=== PATIENT | male | born 1985 | race Caucasian/White ===

== ENCOUNTER 2020-09-25 20:20 | Emergency (ER) | payer SELFPAY ==
--- NOTE | 2020-09-25 20:29 | ERPHSYRPT ---
- History of Present Illness Time Seen by Provider: 09/25/20 20:29 Historian: patient Exam Limitations: no limitations Physician History: This is a 34-year-old white male who has had extensive work-up of his epigastric and chest pain in the last several months. In fact, he states that he has had 3-4 EKGs recently that have all been normal. He also has had negative CAT scans and has been evaluated by his primary care physician for his epigastric discomfort. He has had no abdominal surgeries. He has an upper endoscopy scheduled for Tuesday of next week. This afternoon at approximately 5 PM, the patient began having some chest pressure that has been present intermittently since before July 2020. He also has significant anxiety issues and he thinks it is probably that but he wanted to be checked out to make sure it is not his heart issue. He has had no nausea vomiting or diarrhea. He is not short of breath. Timing/Duration: today Activities at Onset: none Quality: pressure Location: substernal, central Chest Pain Radiation: no radiation Severity of Pain-Max: mild Severity of Pain-Current: none Modifying Factors: Improves With: nothing Associated Symptoms: denies symptoms Prior Chest Pain/Cardiac Workup: recently seen/treated Nitro Today/Relief: no nitro taken today Aspirin Treatment Today: no aspirin today Allergies/Adverse Reactions: amoxicillin Allergy (Mild, Verified 09/25/20 20:33) Home Medications: Famotidine 20 mg [Pepcid 20 MG] 20 mg PO DAILY 09/25/20 [History] Travel Risk - International Travel Have you traveled outside of the country in past 3 weeks: No - Coronavirus Screening Are you exhibiting any of the following symptoms?: No Close contact with a COVID-19 positive Pt in past 14-21 Days: No - Review of Systems Constitutional: No Symptoms Eyes: No Symptoms Ears, Nose, & Throat: No Symptoms Respiratory: No Symptoms Cardiac: No Symptoms, Chest Pain (Resolved) Abdominal/Gastrointestinal: No Symptoms Genitourinary Symptoms: No Symptoms Musculoskeletal: No Symptoms Skin: No Symptoms Neurological: No Symptoms Psychological: No Symptoms Endocrine: No Symptoms Hematologic/Lymphatic: No Symptoms Immunological/Allergic: No Symptoms All Other Systems: Reviewed and Negative - Past Medical History Pertinent Past Medical History: Yes - Past Surgical History Past Surgical History: Yes - Nursing Vital Signs Nursing Vital Signs: Initial Vital Signs Temperature 98.7 F 09/25/20 20:21 Pulse Rate 97 H 09/25/20 20:21 Respiratory Rate 18 09/25/20 20:21 Blood Pressure 166/118 09/25/20 20:21 O2 Sat by Pulse Oximetry 100 09/25/20 20:21 Pain Scale Pain Intensity 4 - Physical Exam General Appearance: no apparent distress, alert, anxiety Eye Exam: PERRL/EOMI, post op pupil defect (L) Ears, Nose, Throat Exam: normal ENT inspection, moist mucous membranes Neck Exam: normal inspection, non-tender, supple, full range of motion Respiratory Exam: normal breath sounds, chest tenderness, lungs clear, airway intact, No respiratory distress Cardiovascular Exam: regular rate/rhythm, normal heart sounds, normal peripheral pulses Gastrointestinal/Abdomen Exam: soft, normal bowel sounds, No tenderness Rectal Exam: not done Back Exam: normal inspection, normal range of motion, No CVA tenderness, No vertebral tenderness Extremity Exam: normal inspection, normal range of motion, pelvis stable Neurologic Exam: alert, oriented x 3, cooperative, 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 No comparison EKG available) Ordered Tests: Active Orders 24 hr Category Date Time Status [employer] STAT Care 09/25/20 20:31 Active EKG-ER Only STAT Care 09/25/20 20:31 Active IV Insertion STAT Care 09/25/20 20:31 Active CBC W DIFF Stat Lab 09/25/20 20:30 Completed CMP Stat Lab 09/25/20 20:30 Completed D-DIMER QUANTITATIVE Stat Lab 09/25/20 20:30 Completed TROPONIN Q3H Lab 09/25/20 20:30 Completed TROPONIN Q3H Lab 09/25/20 23:45 Ordered TROPONIN Q3H Lab 09/26/20 02:45 Ordered TROPONIN Q3H Lab 09/26/20 05:45 Ordered TROPONIN Q3H Lab 09/26/20 08:45 Ordered Lab/Rad Data: Laboratory Result Diagrams 09/25/20 20:30 09/25/20 20:30 Laboratory Results 09/25/20 09/25/20 09/25/20 Range/Units 20:30 20:30 20:30 WBC (4.0-10.5) K/mm3 RBC (4.1-5.6) M/mm3 Hgb (12.5-18.0) gm/dl Hct (42-50) % MCV (78-100) fl MCH (26-32) pg MCHC (32-36) g/dl RDW (11.5-14.0) % Plt Count (150-450) K/mm3 MPV (7.5-11.0) fl Gran % (36.0-66.0) % Eos # (Auto) (0-0.5) Absolute Lymphs (auto) (1.0-4.6) Absolute Monos (auto) (0.0-1.3) Lymphocytes % (24.0-44.0) % Monocytes % (0.0-12.0) % Eosinophils % (0.00-5.0) % Basophils % (0.0-0.4) % Absolute Granulocytes (1.4-6.9) Basophils # (0-0.4) D-Dimer 253 (215-500) ng/mL Sodium 139 (137-145) mmol/L Potassium 3.4 L (3.5-5.1) mmol/L Chloride 105 (98-107) mmol/L Carbon Dioxide 24 (22-30) mmol/L Anion Gap 12.7 (5-15) MEQ/L BUN 12 (9-20) mg/dL Creatinine 0.98 (0.66-1.25) mg/dL Estimated GFR > 60.0 ML/MIN Glucose 126 H (74-106) mg/dL Calcium 9.7 (8.4-10.2) mg/dL Total Bilirubin 0.40 (0.2-1.3) mg/dL AST 21 (17-59) U/L ALT 20 (0-50) U/L Alkaline Phosphatase 55 (38-126) U/L Troponin I < 0.012 (0.000-0.034) ng/mL Serum Total Protein 8.1 (6.3-8.2) g/dL Albumin 4.5 (3.5-5.0) g/dL 09/25/20 Range/Units 20:30 WBC 9.5 (4.0-10.5) K/mm3 RBC 5.04 (4.1-5.6) M/mm3 Hgb 15.5 (12.5-18.0) gm/dl Hct 44.7 (42-50) % MCV 88.7 (78-100) fl MCH 30.8 (26-32) pg MCHC 34.7 (32-36) g/dl RDW 11.9 (11.5-14.0) % Plt Count 284 (150-450) K/mm3 MPV 10.9 (7.5-11.0) fl Gran % 49.1 (36.0-66.0) % Eos # (Auto) 0.22 (0-0.5) Absolute Lymphs (auto) 3.88 (1.0-4.6) Absolute Monos (auto) 0.71 (0.0-1.3) Lymphocytes % 40.7 (24.0-44.0) % Monocytes % 7.5 (0.0-12.0) % Eosinophils % 2.3 (0.00-5.0) % Basophils % 0.4 (0.0-0.4) % Absolute Granulocytes 4.68 (1.4-6.9) Basophils # 0.04 (0-0.4) D-Dimer (215-500) ng/mL Sodium (137-145) mmol/L Potassium (3.5-5.1) mmol/L Chloride (98-107) mmol/L Carbon Dioxide (22-30) mmol/L Anion Gap (5-15) MEQ/L BUN (9-20) mg/dL Creatinine (0.66-1.25) mg/dL Estimated GFR ML/MIN Glucose (74-106) mg/dL Calcium (8.4-10.2) mg/dL Total Bilirubin (0.2-1.3) mg/dL AST (17-59) U/L ALT (0-50) U/L Alkaline Phosphatase (38-126) U/L Troponin I (0.000-0.034) ng/mL Serum Total Protein (6.3-8.2) g/dL Albumin (3.5-5.0) g/dL - Progress Progress: improved Air Movement: good Blood Culture(s) Obtained: No Antibiotics given: No Counseled pt/family regarding: lab results, diagnosis, need for follow-up - Departure Departure Disposition: Home Clinical Impression: Non-cardiac chest pain Condition: Stable Critical Care Time: No Referrals: CHAPITO PIMENTEL [ACTIVE STAFF] - Additional Instructions: Take your medication as prescribed. Follow-up with your primary care physician for further management.
[2020-09-25 20:52] LABS: Absolute Neutrophil Ct (ANC) 4.68 (1.4-6.9); BASOPHIL % 0.4 % (0.0-0.4); Basophil (Absolute #) 0.04 (0-0.4); Eosinophil % 2.3 % (0.00-5.0); Eosinophil (Absolute #) 0.22 (0-0.5); Hematocrit 44.7 % (42-50); Hemoglobin 15.5 gm/dl (12.5-18.0); Lymphocyte (Absolute #) 3.88 (1.0-4.6); Lymphocytes % 40.7 % (24.0-44.0); Mean Cell Volume 88.7 fl (78-100); Mean Corpuscular Hemoglobin 30.8 pg (26-32); Mean Corpuscular Hgb Concent. 34.7 g/dl (32-36); Mean Platelet Volume 10.9 fl (7.5-11.0); Monocyte (Absolute #) 0.71 (0.0-1.3); Monocytes % 7.5 % (0.0-12.0); Neutrophil % 49.1 % (36.0-66.0); Platelet Count 284 K/mm3 (150-450); Red Blood Count 5.04 M/mm3 (4.1-5.6); Red Cell Distribution Width 11.9 % (11.5-14.0); White Blood Count 9.5 K/mm3 (4.0-10.5)
[2020-09-25 21:02] LABS: ALBUMIN 4.5 g/dL (3.5-5.0); ALKALINE PHOSPHATASE 55 U/L (38-126); ANION GAP 12.7 MEQ/L (5-15); BLOOD UREA NITROGEN 12 mg/dL (9-20); CHLORIDE 105 mmol/L (98-107); Calcium 9.7 mg/dL (8.4-10.2); Carbon Dioxide 24 mmol/L (22-30); Creatinine 1 0.98 mg/dL (0.66-1.25); EST GLOMERULAR FILTRATION RATE > 60.0 ML/MIN; Glucose 126 mg/dL (74-106); Potassium 3.4 mmol/L (3.5-5.1); SGOT/AST 21 U/L (17-59); SGPT/ALT 20 U/L (0-50); SODIUM 139 mmol/L (137-145); Total Protein 8.1 g/dL (6.3-8.2)
[2020-09-25 22:06] VITALS: BP 154/99; PULSE 80; O2SAT 97
== END 2020-09-25 22:04 | disposition home or self-care (01) ==
LOC: ED 20:20
DX: R07.9 Chest pain, unspecified (principal); F41.9 Anxiety disorder, unspecified
CPT/HCPCS: 36000; 36415; 80053; 84484; 85025; 85379; 93005; 93041; 99284

== ENCOUNTER 2020-09-29 05:46 | Day surgery (SDC) | payer SELFPAY ==
[2020-09-29] MEDS ORDERED: Lactated Ringers 1,000 ML IV ONE ×2 (06:12→07:59)
[2020-09-29] MEDS ORDERED: Lactated Ringers 1,000 ML IV SCH (06:30)
[2020-09-29] MEDS ORDERED: DIPRIVAN 200 MG/20 ML IV ONE (07:49)
[2020-09-29] MEDS ORDERED: Versed 2 MG/2 ML Injection ONE (07:50)
[2020-09-29 08:41] VITALS: O2SAT 98
[2020-09-29 09:06] VITALS: BP 137/82; PULSE 56
--- NOTE | 2020-09-29 11:31 | OP ---
SURGERY DATE/TIME: 09/29/2020 0755 PREOPERATIVE DIAGNOSIS: Persistent epigastric pain. POSTOPERATIVE DIAGNOSIS: Mild gastritis. PROCEDURE: Esophagogastroduodenoscopy with cold forceps biopsy of gastric antrum. SURGEON: Dr. Leary. ANESTHESIA: Medications were given by the anesthesia department. HISTORY: The patient is a 34 year old white male who has been taking omeprazole and was in the hospital and changed over to famotidine. The patient reports substernal and epigastric pain has somewhat increased. He does use ibuprofen on occasion. He has been instructed not to. The patient was felt the need to have endoscopic evaluation. He was appraised of the risks of the procedure including the risk of perforation, phlebitis, untoward reaction to medication, bleeding and missed lesions. The patient verbalized his understanding and desired to have the procedure performed. DESCRIPTION OF PROCEDURE: The patient was given the medications by the anesthesia department. He had continuous pulse oximetry, ECG monitoring, intermittent blood pressure monitoring and tidal CO2 monitoring during the examination. He was placed in the left lateral decubitus position. A bite block was placed. The flexible Olympus gastroscope was used to intubate the oropharynx. A view of the larynx was obtained and this was normal. The scope was easily introduced in the esophagus which appeared to be normal throughout its length. The stomach was entered where normal gastric rugal folds were seen and these distended nicely with insufflation of air. The scope was passed along the greater curvature of the stomach to the antrum which appeared to be mildly erythematous. No erosions or ulcerations however were noted. The pylorus encountered and intubated. The duodenum inspected and found to be normal. The scope is withdrawn towards the stomach. A retroflex view was obtained of the lesser curvature, fundus and cardia regions of the stomach and these appeared to be normal. The scope was then redirected towards the gastric antrum and biopsies were obtained to rule out the presence of Helicobacter pylori-type organisms. The scope was then removed from the patient who tolerated the procedure well and was sent back to the hospital sargent in good condition.
== END 2020-09-29 09:14 | disposition home or self-care (01) ==
LOC: SDC 05:46
PROVIDERS: ATTEND Family Medicine
DX: K29.70 Gastritis, unspecified, without bleeding (principal); R10.13 Epigastric pain
CPT/HCPCS: J2250; J2704